=== PATIENT | male | born 1950 | race Caucasian/White ===

== ENCOUNTER 2019-08-03 08:59 | Outpatient (CLI) | payer MEDICARE, OTHER | END 2019-08-03 09:00 | disposition critical access hospital (66) | LOC: EMS 08:59 | PROVIDERS: ATTEND Surgery | DX: M54.5 Low back pain (principal); R25.2 Cramp and spasm | CPT/HCPCS: A0425; A0427 ==

== ENCOUNTER 2019-08-03 09:11 | Emergency (ER) | payer MEDICARE, OTHER ==
[2019-08-03] MEDS ORDERED: KETOROLAC 60 MG/2 ML VIAL IM STA (09:31)
[2019-08-03] MEDS ORDERED: LIDOCAINE PATCH 5% TOP STA (09:32)
[2019-08-03] MEDS ORDERED: diazePAM INJ 5 MG/ML SYRINGE IM STA (09:32)
--- NOTE | 2019-08-03 09:33 | ED Physician Documentation ---
PD HPI BACK PAIN - Stated complaint Stated Complaint: BACK SPASM - Chief complaint Chief Complaint: Back Pain - History obtained from History obtained from: Patient, EMS - History of Present Illness Timing - onset: Chronic, Other (this morning) Timing - duration: Other (worse this morning) Timing - details: Abrupt onset Severity Comments: moderate to severe Location: Lower, Other (bilateral) Quality: Spasm Associated symptoms: No: Fever, Weakness, Numbness, Incontinent of urine, Unable to urinate, Hematuria, Incontinent of stool Improves with: Rest Worsened by: Movement Contributing factors: Twisting, Other (was doing a lot of bending over yesterday and working under the sink on some plumbing, then this morning woke up to go to the bathroom and had a back spasm that was moderate to severe. Usually takes nsaids for pain. took nothing today. has hx of chronic low back pain.). No: Trauma, Anticoagulated, Cancer, IVDA, Out of meds Similar symptoms before: Diagnosis (has hx of chronic low back pain) Recently seen: Not recently seen - Treatment prior to arrival Treatment prior to arrival: pt was given 100mcg of fentanyl and 4mg zofran for pain prior to arrival. Review of Systems Ten Systems: 10 systems reviewed and negative Constitutional: denies: Fever GI: denies: Abdominal Pain, Nausea, Vomiting : reports: Reviewed and negative. denies: Dysuria, Frequency, Hesitancy, Incontinent, Hematuria Skin: reports: Reviewed and negative Musculoskeletal: reports: Back pain. denies: Neck pain, Extremity pain, Joint pain, Extremity swelling, Joint swelling Neurologic: denies: Generalized weakness, Focal weakness, Numbness Psychiatric: reports: Reviewed and negative Endocrine: reports: Reviewed and negative Immunocompromised: reports: Reviewed and negative PD PAST MEDICAL HISTORY - Past Medical History Past Medical History: Yes Musculoskeletal: Chronic back pain - Present Medications Home Medications: Ambulatory Orders Medication Instructions Recorded Confirmed Cyclobenzaprine [Flexeril] 10 mg PO TID PRN #20 tablet 08/03/19 - Allergies Allergies/Adverse Reactions: Allergies Allergy/AdvReac Type Severity Reaction Status Date / Time shellfish derived Allergy Anaphylaxis Verified 08/03/19 09:22 PD ED PE NORMAL - Vitals Vital signs reviewed: Yes - General General: Alert and oriented X 3, No acute distress, Well developed/nourished - HEENT HEENT: Atraumatic, Pharynx benign - Neck Neck: Supple, no meningeal sign - Cardiac Cardiac: RRR - Respiratory Respiratory: No respiratory distress - Abdomen Abdomen: Soft, Non tender, Non distended - Male Male : Deferred - Rectal Rectal: Deferred - Derm Derm: Normal color, Warm and dry, No rash - Extremities Extremities: No deformity, No tenderness to palpate, Normal ROM s pain, No edema, No calf tenderness / cord - Neuro Neuro: Alert and oriented X 3, No motor deficit, No sensory deficit Motor: Obeys Commands Verbal: Oriented - Psych Psych: Normal mood, Normal affect PD ED PE EXPANDED - Back Back: Normal exam, Normal ROM, Straight leg raise + R, Other (no saddle anesthesia). No: Vertebral tenderness, Soft tissue tenderness, Limited ROM, Straight leg raise + L, CVA TTP right, CVA TTP left Results - Vitals Vitals: Vital Signs - 24 hr 08/03/19 08/03/19 08/03/19 09:22 09:55 10:10 Temperature 36.6 C Heart Rate 76 53 L 58 L Respiratory 18 18 18 Rate Blood Pressure 173/106 H 164/83 H 158/89 H O2 Saturation 98 99 99 Oxygen O2 Source Room air PD MEDICAL DECISION MAKING - ED course Complexity details: considered differential, d/w patient ED course: ddx- chronic low back pain, kidney stone, sciatica, disk herniation, back spasm, muscle strain, radiculopathy, epidural abscess, diskitis. 68 y/o M with hx and exam as documented, no risk factors or red flags for SPE/diskitis or malignancy, no hx of trauma but pt was doing a lot of work and bending, now complaining of spasming. No hx of kidney stone, no urinary symptoms, urine here is clear appearing and hx is not consistent with a kidney stone or UTI. Neuro intact, no saddle anesthesia. Given valium, toradol, lidoderm patches in the ED and will reassess pain and exam. Pt's symptoms moderately improved, he is ambulating around the ED. I do not feel that emergent labs or imaging are indicated at this time as this is consistent with musculoskeletal back pain and pt is improving. Pt is stable for discharge with continued supportive care at home and outpt f/u as needed. Departure - Departure Disposition: 01 Home, Self Care Clinical Impression: Back muscle spasm Condition: Stable Record reviewed to determine appropriate education?: Yes Instructions: ED Spasm Back No Trauma Follow-Up: Merrill Perez MD [Primary Care Provider] - As Needed Prescriptions: Cyclobenzaprine [Flexeril] 10 mg PO TID PRN #20 tablet PRN Reason: Spasms Comments: Your evaluation today was consistent with back spasms. You should use heat, local massage and can take the prescribed muscle relaxant for pain and spasms. Avoid spending too much time immobilized as this tends to lead to worsened stiffening and spasms. Follow up with your regular doctor if your symptoms persist. Return to the ED if pain is severe or you develop numbness, weakness, bladder or bowel problems such as incontinence or fever.
[2019-08-03] MEDS ORDERED: KETOROLAC 30 MG/ML VIAL ONE (09:39)
[2019-08-03 10:11] VITALS: BP 158/89
== END 2019-08-03 11:07 | disposition home or self-care (01) ==
LOC: ED 09:11
DX: M62.830 Muscle spasm of back (principal)
CPT/HCPCS: 96372; 99283; 99284; A9270

== ENCOUNTER 2020-12-31 06:00 | Outpatient (CLI) | payer MEDICARE, OTHER | END 2020-12-31 06:01 | disposition critical access hospital (66) | LOC: EMS 06:00 | DX: R29.810 Facial weakness (principal); R47.81 Slurred speech; R29.898 Other symptoms and signs involving the musculoskeletal system; R42 Dizziness and giddiness; R11.0 Nausea | CPT/HCPCS: A0425; A0427 ==

== ENCOUNTER 2020-12-31 06:13 | Emergency (ER) | payer MEDICARE, OTHER ==
[2020-12-31] MEDS ORDERED: SODIUM CHLORIDE 0.9% 1,000 ML IV STA (06:17)
[2020-12-31] MEDS ORDERED: diphenhydrAMINE INJ 50 MG/ML VIAL IVP STA (06:17)
--- NOTE | 2020-12-31 06:20 | ED Physician Documentation ---
PD HPI FOCAL NEURO - Stated complaint Stated Complaint: CODE STROKE - History obtained from History obtained from: Patient, EMS - History of Present Illness Timing - onset: How many minutes ago (45) Timing - duration: Minutes (45) Timing - details: Abrupt onset (Patient states he got up to go to the bathroom at 5:30 and was walking to the bathroom feeling normal and then suddenly noticed weakness of the left arm and leg and unable to stand up. He called his for help.) Severity of deficit: Moderate (Report from medics is the patient awoke and was normal at 530 and had onset of symptoms at that point according to his . EMS was called immediately. Symptoms improved somewhat on the route and then worsened again. Moderate weakness left face arm and leg.) Weakness: Face, Arm, Leg, Left Numbness: Face, Arm, Leg, Left Associated symptoms: No: Headache, Chest pain, Neck pain Contributing factors: negative: Anticoagulated, Atrial fibrillation Baseline status: positive: A&OX3, ambulatory, indep Similar symptoms before: Has not had sx before Recently seen: Clinic (got COVID vaccine couple months ago), Not recently seen Review of Systems Unable to obtain: Other (denies recent illness) Constitutional: denies: Fever Nose: denies: Rhinorrhea / runny nose, Congestion Throat: denies: Sore throat Cardiac: denies: Chest pain / pressure, Pedal edema Respiratory: denies: Cough GI: denies: Abdominal Pain, Vomiting, Diarrhea Neurologic: denies: Altered mental status, Headache, Head injury PD PAST MEDICAL HISTORY - Past Medical History Cardiovascular: Hypertension Respiratory: None Neuro: None Endocrine/Autoimmune: None Musculoskeletal: Chronic back pain - Present Medications Home Medications: Ambulatory Orders Medication Instructions Recorded Confirmed Cyclobenzaprine [Flexeril] 10 mg PO TID PRN #20 tablet 08/03/19 12/31/20 Allopurinol [Zyloprim] 300 mg PO DAILY 12/31/20 12/31/20 Doxycycline Monohydrate [Avidoxy] 100 mg PO DAILY 12/31/20 12/31/20 amLODIPine [Norvasc] 5 mg PO DAILY 12/31/20 12/31/20 buPROPion HCL [Bupropion Xl] 300 mg PO DAILY 12/31/20 12/31/20 - Allergies Allergies/Adverse Reactions: Allergies Allergy/AdvReac Type Severity Reaction Status Date / Time shellfish derived Allergy Anaphylaxis Verified 12/31/20 06:27 PD ED PE NORMAL - Vitals Vital signs reviewed: Yes - General General: Alert and oriented X 3, No acute distress, Well developed/nourished - HEENT HEENT: Atraumatic, Moist mucous membranes - Neck Neck: Supple, no meningeal sign, No adenopathy - Cardiac Cardiac: RRR, No murmur - Respiratory Respiratory: Clear bilaterally - Abdomen Abdomen: Soft, Non tender - Derm Derm: Normal color, Warm and dry - Extremities Extremities: No tenderness to palpate, No edema, No calf tenderness / cord - Neuro Neuro: Alert and oriented X 3, Other (some difficulty with articulation and noted left face/arm/leg weakness. ) Eye Opening: Spontaneous Motor: Obeys Commands Verbal: Oriented GCS Score: 15 - Psych Psych: Normal mood NIHSS - Level of Consciousness Level of consciousness: (0) Alert, Keenly responsive LOC Questions: (0) Answers both Q's correct LOC Commands: (0) Performs both correctly - Gaze Best Gaze: (0) Normal - Visual Visual: (0) No loss - Facial Palsy Facial Palsy: (2) Partial paralysis - Motor Arms (both separate) Motor Arm (right): (0) No drift Motor Arm (left): (1) Drift - Motor Legs (both separate) Motor Leg (right): (0) No drift Motor Leg (left): (2) Some effort against gravity - Limb Ataxia Limb Ataxia: (0) Absent - Sensory Sensory: (1) Xuii-rv-dhemnbjn loss - Best Language Best Language: (0) No aphasia - Dysarthria Dysarthria: (1) Tnty-id-zrcnkeoh dysarthria - Extinction and Inattention (formally neg Extinction and inattention: (0) No abnormality - Total Score/Results Total Score/Result: 7 Results - Vitals Vitals: Vital Signs - 24 hr 12/31/20 12/31/20 12/31/20 06:13 06:38 06:52 Temperature 35.9 C L 36.0 C L Heart Rate 74 67 64 Respiratory 23 12 12 Rate Blood Pressure 180/127 H 164/99 H 164/99 H O2 Saturation 98 99 99 12/31/20 12/31/20 12/31/20 07:02 07:29 07:39 Temperature Heart Rate 65 64 66 Respiratory 18 13 20 Rate Blood Pressure 145/89 H 142/96 H 175/102 H O2 Saturation 97 99 96 12/31/20 12/31/20 12/31/20 07:52 08:05 08:16 Temperature Heart Rate 54 L 71 56 L Respiratory 10 L 14 16 Rate Blood Pressure 155/95 H 149/90 H 151/86 H O2 Saturation 97 99 97 Oxygen O2 Source Room air - EKG (time done) 06:43 Rate: Rate (enter#) (56) Rhythm: Sinus bradycardia [place]: Normal Intervals: Normal [place] QRS: Normal Ischemia: Normal ST segments. No: ST elevation c/w ischemia, ST depression - Labs Labs: Laboratory Tests 12/31/20 12/31/20 12/31/20 06:55 06:55 06:55 WBC 7.3 RBC 5.10 Hgb 15.1 Hct 44.9 MCV 88.0 MCH 29.6 MCHC 33.6 RDW 13.4 Plt Count 183 MPV 10.1 Neut # (Auto) 4.9 Lymph # (Auto) 1.7 [place] # (Auto) 0.6 Eos # (Auto) 0.1 Baso # (Auto) 0.1 Absolute Nucleated RBC 0.00 Nucleated RBC % 0.0 Sodium 135 Potassium 3.6 Chloride 105 Carbon Dioxide 21 Anion Gap 9.0 BUN 22 H Creatinine 0.9 Estimated GFR (MDRD) 84 L Glucose 118 H Calcium 8.6 Total Bilirubin 0.4 AST 17 ALT 20 Alkaline Phosphatase 99 Total Protein 5.6 L Albumin 3.6 Globulin 2.0 L Albumin/Globulin Ratio 1.8 Lipase 24 Nasal Adenovirus (PCR) NOT DETECTED Nasal B. parapertussis DNA (PCR) NOT DETECTED Nasal Coronavir 229E PCR NOT DETECTED Nasal Coronavir HKU1 PCR NOT DETECTED Nasal Coronavir NL63 PCR NOT DETECTED Nasal Coronavir OC43 PCR NOT DETECTED Nasal Enterovir/Rhinovir PCR NOT DETECTED Nasal Influenza B PCR NOT DETECTED Nasal Influenza A PCR NOT DETECTED Nasal Parainfluen 1 PCR NOT DETECTED Nasal Parainfluen 2 PCR NOT DETECTED Nasal Parainfluen 3 PCR NOT DETECTED Nasal Parainfluen 4 PCR NOT DETECTED Nasal RSV (PCR) NOT DETECTED Nasal B.pertussis DNA PCR NOT DETECTED Nasal C.pneumoniae (PCR) NOT DETECTED Hossein Human Metapneumo PCR NOT DETECTED Nasal M.pneumoniae (PCR) NOT DETECTED Nasal SARS-CoV-2 (PCR) NOT DETECTED - Rads (name of study) head CT Radiology: Prelim report reviewed (The noncontrast head CT shows equivocal dense MCA on the right and an early insular ribbon sign. Old left leblanc radiata lacunar infarct noted.), See rad report angio head/neck Radiology: Prelim report reviewed, Discussed with rads, See rad report PD MEDICAL DECISION MAKING - ED course Complexity details: re-evaluated patient (08:05 - symptoms improved suddenly and he is feeling well. No headache. ), considered differential, d/w patient, d/w bridal sales consultant (Consulted telestroke at [facility] who then contacted [facility] neurology and IR team pending the CTA results.) ED course: The interventional radiology neurologist evaluated the films as well and did not see a main vessel occlusion just distal on the right. No interventional radiology indicated. I talked with the neuro dean for student affairs at [facility] who accepted transfer of the patient. - Critical Care Time Includes: Direct patient care, Reassess patient, Coordinate care, Medical consult Data interpretation: Labs Procedures excluded from critical care time: EKG Departure - Departure Disposition: 02 Transfer Acute Care Hosp Clinical Impression: Cerebrovascular accident (CVA) Condition: Stable
[2020-12-31] MEDS ORDERED: IOPAMIDOL-300 100 ML VIAL ONE (06:21)
[2020-12-31] MEDS ORDERED: IOPAMIDOL-300 100 ML VIAL IVP ONE (06:57)
[2020-12-31 07:01] LABS: BASOPHILS # (AUTO) 0.1 10^3/uL (0.0-0.1); BASOPHILS % (AUTO) 0.7 %; EOSINOPHILS # (AUTO) 0.1 10^3/uL (0.0-0.7); EOSINOPHILS % (AUTO) 1.8 %; HCT - HEMATOCRIT 44.9 % (42.0-52.0); HGB - HEMOGLOBIN 15.1 g/dL (14.0-18.0); LYMPHOCYTES # (AUTO) 1.7 10^3/uL (1.5-3.5); LYMPHOCYTES % (AUTO) 22.6 %; MEAN CORPUSCULAR HEMOGLOBIN 29.6 pg (27.0-31.0); MEAN CORPUSCULAR HGB CONC 33.6 g/dL (32.0-36.0); MEAN PLATELET VOLUME 10.1 fL (7.4-11.4); MONOCYTES # (AUTO) 0.6 10^3/uL (0.0-1.0); MONOCYTES % (AUTO) 8.3 %; NEUTROPHILS # (AUTO) 4.9 10^3/uL (1.5-6.6); NEUTROPHILS % (AUTO) 66.3 %; PLT - PLATELET COUNT 183 10^3/uL (130-450); RED CELL DISTRIBUTION WIDTH 13.4 % (12.0-15.0); WHITE BLOOD COUNT 7.3 x10^3/uL (4.8-10.8)
--- NOTE | 2020-12-31 07:08 | CT Report ---
PROCEDURE: Head W/O Stroke Protocol INDICATIONS: left sided weakness TECHNIQUE: Noncontrast 4.5 mm thick angled axial sections acquired from the foramen magnum to the vertex. For r adiation dose reduction, the following was used: automated exposure control, adjustment of mA and/or kV according to patient size. COMPARISON: None FINDINGS: Image quality: Excellent. CSF spaces: Basal cisterns are patent. No extra-axial fluid collections. The ventricles are symmet scott in size and shape. Brain: No intracranial bleeds or masses. There is cerebral volume loss for age, with resultant vent ricular and sulcal prominence. There are periventricular and deep white matter chronic small vessel ischemic changes. Chronic left coronal radiata and caudate head lacunar infarcts. There is intracran ial internal carotid artery atherosclerosis. Skull and face: Calvarium and visualized facial bones appear intact, without suspicious lesions. Sinuses: Visualized sinuses and mastoids are clear. IMPRESSION: No acute intracranial disease process. Reviewed by: Millie Santana MD, PhD on 12/31/2020 7:07 AM PDT Approved by: Millie Santana MD, PhD on 12/31/2020 7:07 AM PDT Station ID: [id number]
[2020-12-31 07:12] LABS: ALBUMIN 3.6 g/dL (3.2-5.5); ALBUMIN/GLOBULIN RATIO 1.8 (1.0-2.2); BILIRUBIN,TOTAL 0.4 mg/dL (0.2-1.0); CALCIUM 8.6 mg/dL (8.5-10.3); CREATININE 0.9 mg/dL (0.6-1.2); POTASSIUM 3.6 mmol/L (3.5-5.0); TOTAL PROTEIN 5.6 g/dL (6.7-8.2)
[2020-12-31] MEDS ORDERED: ALTEPLASE 81 MG in WATER FOR INJECTION,STERILE 100 ML IV STA (07:18)
[2020-12-31 07:57] LABS: CORONAVIRUS 229E-RESP PCR NOT DETECTED; CORONAVIRUS HKU1-RESP PCR NOT DETECTED; CORONAVIRUS NL63-RESP PCR NOT DETECTED; CORONAVIRUS OC43-RESP PCR NOT DETECTED; HUMAN METAPNEUMOVIRUS NOT DETECTED; INFLUENZA A- RESP PCR PANEL NOT DETECTED; RHINOVIRUS/ENTEROVIRUS NOT DETECTED; SARS-CoV-2 -RESP PCR PANEL NOT DETECTED
[2020-12-31 07:58] LABS: B. PARAPERTUSSIS- RESP PCR PAN NOT DETECTED; B. PERTUSSIS- RESP PCR PANEL NOT DETECTED; C. PNEUMONIAE- RESP PCR PANEL NOT DETECTED; INFLUENZA B - RESP PCR PANEL NOT DETECTED; M. PNEUMONIAE- RESP PCR PANEL NOT DETECTED; PARAINFLUENZA VIRUS 1 NOT DETECTED; PARAINFLUENZA VIRUS 2 NOT DETECTED; PARAINFLUENZA VIRUS 3 NOT DETECTED; PARAINFLUENZA VIRUS 4 NOT DETECTED; RSV- RESP PCR PANEL NOT DETECTED
--- NOTE | 2020-12-31 08:49 | CT Report ---
PROCEDURE: ANGIO HEAD W/WO INDICATIONS: L sided facial droop CONTRAST: IV CONTRAST: Isovue 300 ml: 100 PO CONTRAST: *NO PO CONTRAST TECHNIQUE: Precontrast 4.5 mm thick angled axial sections acquired from the foramen magnum to the vertex. Afte r the administration of intravenous contrast, 1 mm thick sections acquired through the [place] of [place] is. Postcontrast 4.5 mm thick sections then re-acquired from the foramen magnum to the vertex. 3-di mensional ziuhdck-eeazfmyfd-wgrvzophpn (MIP) and/or volume rendering reformats were acquired of the c entral intracranial vasculature. For radiation dose reduction, the following was used: automated ex posure control, adjustment of mA and/or kV according to patient size. COMPARISON: CT head 12/31/2020 FINDINGS: Image quality: Excellent. Anterior circulation: Intracranial internal carotid arteries are normal in flow. Atherosclerotic edwina que noted in the cavernous and clinoid segments of the internal carotid arteries bilaterally which ca uses mild stenosis of the right internal carotid artery and moderate stenosis of the left internal ca rotid artery. The flow within the paired anterior cerebral arteries is normal and symmetric. The emily w within the middle cerebral arteries is normal and symmetric. The anterior communicating artery is seen. No aneurysms are seen. Posterior circulation: Atherosclerotic calcification noted in the proximal V4 segment of the left umair tebral artery which causes moderate, short segment stenosis. Patient is left vertebral artery dominan t. Diffuse atherosclerotic disease noted in the basilar artery with attenuated flow. 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 The distal, P4 segment of the r ight posterior cerebral artery is occluded. Left posterior cerebral artery is fully patent. No aneury sms are seen. Normal postcontrast enhancement of the dural sinuses. CSF spaces: Ventricles are normal in size and shape. Basal cisterns are patent. No extra-axial flu id collections. Brain: No midline shift. Chronic lacunar infarcts involving the left leblanc radiata and the left ca udate head. No intracranial bleeds or masses. [place]-white matter interface appears intact. Skull and face: Calvarium and facial bones appear intact, without suspicious lesions. Sinuses: Visualized sinuses and mastoids are clear. IMPRESSION: 1. No acute intracranial disease process. 2. No large vessel occlusion, vascular dissection or aneurysm. 3. 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 4. 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 5. 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 Reviewed by: Millie Santana MD, PhD on 12/31/2020 8:47 AM PDT Approved by: Millie Santana MD, PhD on 12/31/2020 8:47 AM PDT Station ID: [id number]
--- NOTE | 2020-12-31 08:54 | CT Report ---
PROCEDURE: ANGIO NECK W INDICATIONS: L sided facial droop, L neck pain CONTRAST: IV CONTRAST: Isovue 300 ml: 100 PO CONTRAST: *NO PO CONTRAST TECHNIQUE: After the administration of intravenous contrast, 1.5 mm axial sections acquired from the aortic arch to the [place] of [place]. Coronal 3-D maximum intensity projection (MIP) and/or volume rendering ref ormats were then performed. For radiation dose reduction, the following was used: automated exposur e control, adjustment of mA and/or kV according to patient size. COMPARISON: None. FINDINGS: Image quality: Excellent. Carotid system: The great vessels demonstrate a conventional anatomy as they arise from the aortic a rc. The origins of the common carotid arteries appear patent. The common carotid arteries demonstr ate normal calibers and courses. Static calcification noted in the origins of the internal carotid ar teries as causes less than 50% stenosis. Posterior circulation: Patient is left vertebral artery dominant. Atherosclerotic plaque noted in the origin of left vertebral artery which causes mild narrowing of the vessel. Origin the right vertebra l artery appears fully patent. The more superior portions of the vertebral arteries demonstrate jacquelin l course and caliber. Atherosclerotic ossification noted in the proximal V4 segment of the left verte bral artery which causes moderate, short segment stenosis. Diffuse moderate to severe atherosclerotic irregularity noted in the basilar artery with attenuated flow. Soft tissues: Visualized neck soft t issues demonstrate no suspicious abnormalities. The thyroid gland contains a 2.6 cm hypoattenuating nodule in the left lobe. Bones: No suspicious bony lesions. No spine Visualized cervical spine appears normally aligned. IMPRESSION: 1. Less than 50% stenosis of the origins of the internal carotid arteries. 2. 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 Patient l eft vertebral artery dominant. 3. Moderate to severe diffuse atherosclerotic disease involving the basilar artery with attenuated fl ow in the vessel. 4. 2.6 cm left thyroid nodule. Recommend thyroid ultrasound clinically feasible for definitive charac terization. The estimate of stenosis included in the report of the imaging study was calculated using the NASCET method Reviewed by: Millie Santana MD, PhD on 12/31/2020 8:52 AM PDT Approved by: Millie Santana MD, PhD on 12/31/2020 8:52 AM PDT Station ID: [id number]
[2020-12-31 09:10] VITALS: BP 134/96
== END 2020-12-31 09:16 | disposition short-term general hospital (02) ==
LOC: EDSEX → EDUNIT# → ED 06:13
DX: I63.9 Cerebral infarction, unspecified (principal); R29.707 NIHSS score 7; G81.94 Hemiplegia, unspecified affecting left nondominant side; R29.810 Facial weakness; R47.1 Dysarthria and anarthria; I10 Essential (primary) hypertension; R00.1 Bradycardia, unspecified; Z20.822 Contact with and (suspected) exposure to COVID-19
CPT/HCPCS: 36415; 37195; 70450; 70496; 70498; 80053; 83690; 85025; 87631; 93005; 96361; 96374; 99285; 99291; J1200; J2997; 0202U

== ENCOUNTER 2020-12-31 09:21 | Outpatient (CLI) | payer MEDICARE, OTHER | END 2020-12-31 09:22 | disposition short-term general hospital (02) | LOC: EMS 09:21 | PROVIDERS: ATTEND Emergency Medicine | DX: I63.9 Cerebral infarction, unspecified (principal) | CPT/HCPCS: A0425; A0428 ==

== ENCOUNTER 2023-11-05 01:32 | Outpatient (CLI) | payer MEDICARE, OTHER | END 2023-11-05 01:33 | disposition critical access hospital (66) | LOC: EMS 01:32 | DX: R42 Dizziness and giddiness (principal); R53.1 Weakness | CPT/HCPCS: A0425; A0429 ==

== ENCOUNTER 2023-11-05 01:44 | Emergency (ER) | payer MEDICARE, OTHER ==
--- NOTE | 2023-11-05 02:02 | ED Physician Documentation ---
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 Patient states he was feeling fine earlier in the day. denies cp, soa, n/v/d abdominal pain fnd. PD PAST MEDICAL HISTORY - Past Medical History Cardiovascular: Hypertension Respiratory: None Neuro: None Endocrine/Autoimmune: None Musculoskeletal: Chronic back pain - Past Surgical History Past Surgical History: Yes General: Hiatal hernia repair Ortho: Knee replacement, Other - Present Medications Home Medications: Ambulatory Orders Medication Instructions Recorded Confirmed allopurinoL [Zyloprim] 300 mg PO DAILY 12/31/20 11/05/23 amLODIPine [Norvasc] 5 mg PO DAILY 12/31/20 11/05/23 buPROPion HCL [Bupropion Xl] 300 mg PO DAILY 12/31/20 11/05/23 Apixaban [Eliquis] 5 mg PO BID 11/05/23 11/05/23 Aspirin [Aspirin Regimen] 81 mg PO DAILY 11/05/23 11/05/23 Atorvastatin Calcium 40 mg PO DAILY 11/05/23 11/05/23 Cholecalciferol (Vitamin D3) 1,000 units PO DAILY 11/05/23 11/05/23 [Vitamin D3] Cyclobenzaprine [Flexeril] 10 mg PO BID 11/05/23 11/05/23 Ibuprofen [Advil] 800 mg PO DAILY 11/05/23 11/05/23 Losartan Potassium 100 mg PO DAILY 11/05/23 11/05/23 Testosterone See Rx Instructions .ROUTE .COMPLEX 11/05/23 11/05/23 - Allergies Allergies/Adverse Reactions: Allergies Allergy/AdvReac Type Severity Reaction Status Date / Time shellfish derived Allergy Anaphylaxis Verified 11/05/23 01:49 - Social History Does the pt smoke?: No Smoking Status: Never smoker Does the pt drink ETOH?: Yes Does the pt have substance abuse?: No - Immunizations Immunizations: TDAP current <10years - POLST Patient has POLST: No PD ED PE NORMAL - Vitals Vital signs reviewed: Yes - General General: Alert and oriented X 3, No acute distress, Well developed/nourished - HEENT HEENT: Atraumatic, PERRL, EOMI, Moist mucous membranes - Neck Neck: Supple, no meningeal sign - Cardiac Cardiac: RRR - Respiratory Respiratory: No respiratory distress, Clear bilaterally - Abdomen Abdomen: Non tender, Non distended Results - Vitals Vitals: Vital Signs - 24 hr 11/05/23 11/05/23 11/05/23 01:45 02:30 03:58 Temperature 35.9 C L Heart Rate 92 81 90 Respiratory 24 23 20 Rate Blood Pressure 131/90 H 126/71 142/87 H O2 Saturation 98 98 97 If not protocol : Oxygen Flow, liters/minute 11/05/23 11/05/23 11/05/23 05:00 05:09 05:15 Temperature Heart Rate 85 74 79 Respiratory 19 23 25 H Rate Blood Pressure 150/77 H 147/92 H 131/67 H O2 Saturation 98 98 100 If not protocol 4 4 : Oxygen Flow, liters/minute 11/05/23 11/05/23 11/05/23 05:20 05:27 05:30 Temperature Heart Rate 76 76 73 Respiratory 25 H 23 16 Rate Blood Pressure 117/80 101/81 H O2 Saturation 98 97 97 If not protocol 4 : Oxygen Flow, liters/minute 11/05/23 11/05/23 11/05/23 05:35 05:40 05:45 Temperature Heart Rate 75 71 73 Respiratory 24 18 22 Rate Blood Pressure 132/82 H 124/74 115/89 H O2 Saturation 100 99 95 If not protocol : Oxygen Flow, liters/minute Oxygen O2 Source Room air - EKG (time done) 0153 EKG releavant findings:: EKG personally interpreted by author of this note. Relevant findings are: Rate: Rate (enter#) (78) Rhythm: Atrial flutter [place]: Normal Intervals: Normal ND, Other (1 PVC detected) QRS: Normal Ischemia: Normal ST segments 0516 EKG releavant findings:: EKG personally interpreted by author of this note. Relevant findings are: Rate: Rate (enter#) (74) Rhythm: NSR, Other (trigeminy) - Labs Labs: Laboratory Tests 11/05/23 11/05/23 02:01 02:01 WBC 7.9 RBC 5.05 Hgb 15.0 Hct 45.2 MCV 89.5 MCH 29.7 MCHC 33.2 RDW 13.6 Plt Count 146 MPV 10.8 Neut # (Auto) 5.6 Lymph # (Auto) 0.9 L [place] # (Auto) 1.2 H Eos # (Auto) 0.1 Baso # (Auto) 0.1 Absolute Nucleated RBC 0.00 Nucleated RBC % 0.0 Sodium 137 Potassium 3.2 L Chloride 101 Carbon Dioxide 27 Anion Gap 9.0 BUN 24 H Creatinine 1.5 H Estimated GFR (MDRD) 46 L Glucose 174 H Calcium 9.2 Magnesium 1.7 Total Bilirubin 0.6 AST 21 ALT 23 Alkaline Phosphatase 121 Total Protein 5.8 L Albumin 4.0 Globulin 1.8 L Albumin/Globulin Ratio 2.2 Lipase 19 Procedures - Procedural sedation Sedation prep: Informed consent, Time out completed, Last meal (>12h), PE performed, ASA 3 - severe disease, IV O2 monitor, ET CO2 monitor, RT present Sedation Medications: propofol Mallampati classification: II Patient status during sedation: Unresponsive, Vitals remained stable, Recovered uneventfully, Needed resp assistance Sedation recovery: Recovered uneventfully, Back to baseline Time in sedation (Minutes): 15 - Cardioversion - Major Attempt 1 Time of attempt: 05:10 Indication: Tachyarrhythmia Risks, benefits, alternatives explained to: Pt Prep: IV, O2, 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 patient has been compliant with his apixaban for 3 years. plan to attempt chemical cardioversion with procainamide. since it was ineffective electrical cardioversion was performed at 100 J with 100mg IV propofol administered. cbc, abdominal panel, ivf ordered in addition to cxr and ekg. Notable findings included cre 1.5, increased from previous baseline of normal. cxr benign with no evidence of acute disease per my interpretation. Post- cardioversion EKG NSR with trigeminy. 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 Return precautions given. Departure - Departure Disposition: Home, Self Care Clinical Impression: Dizziness, Atrial flutter, JERO (acute kidney injury) Condition: Stable Instructions: Sedation Procedural, ED Cardioversion Comments: You were seen in the emergency department for atrial flutter. Your lab work was normal except for some low potassium of 3.2 and creatinine of 1.5, which is an indication of kidney injury compared to your previous lab work. Please follow- up with your primary care provider for further evaluation and repeat blood work. Please follow-up with your polystyrene molding machine tender as well and return to the emergency department if you have any new or worsening symptoms or other concerns.
[2023-11-05 02:09] LABS: BASOPHILS # (AUTO) 0.1 10^3/uL (0.0-0.1); BASOPHILS % (AUTO) 0.9 %; EOSINOPHILS # (AUTO) 0.1 10^3/uL (0.0-0.7); EOSINOPHILS % (AUTO) 1.8 %; HCT - HEMATOCRIT 45.2 % (42.0-52.0); LYMPHOCYTES # (AUTO) 0.9 10^3/uL (1.5-3.5); LYMPHOCYTES % (AUTO) 11.7 %; MEAN CORPUSCULAR HEMOGLOBIN 29.7 pg (27.0-31.0); MEAN CORPUSCULAR HGB CONC 33.2 g/dL (32.0-36.0); MEAN CORPUSCULAR VOLUME 89.5 fL (80.0-94.0); MEAN PLATELET VOLUME 10.8 fL (7.4-11.4); MONOCYTES # (AUTO) 1.2 10^3/uL (0.0-1.0); NEUTROPHILS # (AUTO) 5.6 10^3/uL (1.5-6.6); NEUTROPHILS % (AUTO) 70.3 %; PLT - PLATELET COUNT 146 10^3/uL (130-450); RED BLOOD COUNT 5.05 10^6/uL (4.70-6.10); RED CELL DISTRIBUTION WIDTH 13.6 % (12.0-15.0); WHITE BLOOD COUNT 7.9 x10^3/uL (4.8-10.8)
[2023-11-05] MEDS ORDERED: PROCAINAMIDE 1,000 MG/10 ML SYRINGE ONE (02:17)
[2023-11-05 02:19] LABS: MAGNESIUM 1.7 mg/dL (1.7-2.3)
[2023-11-05 02:26] LABS: ALBUMIN/GLOBULIN RATIO 2.2 (1.0-2.2); BILIRUBIN,TOTAL 0.6 mg/dL (0.2-1.0); CALCIUM 9.2 mg/dL (8.5-10.3); CREATININE 1.5 mg/dL (0.6-1.3); POTASSIUM 3.2 mmol/L (3.5-4.5); TOTAL PROTEIN 5.8 g/dL (6.4-8.9)
[2023-11-05] MEDS: PROCAINAMIDE 1,000 MG in SODIUM CHLORIDE 0.9% 240 ML IV STA (02:28)
[2023-11-05] MEDS: SODIUM CHLORIDE 0.9% 1,000 ML IV STA (02:28)
[2023-11-05] MEDS: MAG HYDROX/AL HYDROX/SIMETH 30 ML UDC PO STA (02:43)
[2023-11-05] MEDS: LIDOCAINE VISCOUS 2% 15 ML ORAL SYRINGE MM STA (02:43)
[2023-11-05] MEDS: diphenhydrAMINE ELIXIR 25 MG/10 ML UDC PO STA (02:43)
[2023-11-05] MEDS: POTASSIUM CHLOR 10 MEQ/100 ML 10 MEQ/100 ML BAG IV STA (03:33)
[2023-11-05] MEDS: PROPOFOL 200 MG/20 ML VIAL IVP STA (05:06)
[2023-11-05 06:07] VITALS: BP 132/86; O2SAT 99
--- NOTE | 2023-11-05 07:19 | XRAY Report ---
PROCEDURE: Chest 1V INDICATIONS: Chest Pain TECHNIQUE: One view of the chest was acquired. COMPARISON: None. FINDINGS: Surgical changes and devices: None. Lungs and pleura: No pleural effusions or pneumothorax. Minimal bibasilar atelectasis. Mediastinum: Mediastinal contours appear normal. Top normal heart size. Bones and chest wall: No suspicious bony lesions. Overlying soft tissues appear unremarkable. IMPRESSION: Minimal bibasilar atelectasis. Findings are concordant with preliminary interpretation provided by [facility]. Reviewed by: Jaskaran Syed MD on 11/05/2023 7:18 AM PDT Approved by: Jaskaran Syed MD on 11/05/2023 7:18 AM PDT Station ID: [id number]
== END 2023-11-05 06:13 | disposition home or self-care (01) ==
LOC: EDUNIT# → ED 01:44
DX: N17.9 Acute kidney failure, unspecified (principal); I48.92 Unspecified atrial flutter; R42 Dizziness and giddiness; I10 Essential (primary) hypertension; Z79.01 Long term (current) use of anticoagulants; Z79.899 Other long term (current) drug therapy; Z79.82 Long term (current) use of aspirin
CPT/HCPCS: 36415; 71045; 80053; 83690; 83735; 85025; 92960; 93005; 96365; 99152; 99285; J2690